=== PATIENT | female | born 1990 | race Asian ===

== ENCOUNTER 2017-07-21 09:27 | Emergency (ER) | payer MEDICAID ==
[2017-07-21 09:44] VITALS: BP 112/61; PULSE 90; RESP 18; TEMP 97.3; O2SAT 94
--- NOTE | 2017-07-21 10:09 | EDPHY ---
H & P Time Seen by Provider: 07/21/17 09:46 HPI/ROS: CHIEF COMPLAINT: Cough, runny nose HISTORY OF PRESENT ILLNESS: The patient is a 17-year-old female who presents to the emergency department with cough and runny nose for the past 2 days. She states that her rhinorrhea is clear. Her cough is nonproductive. She is not short of breath. She has no chest pain. She has had a minimal sore throat that is bilateral. No difficulty swallowing or tolerating secretions. She feels as though she has mild phlegm in her throat. She has had no abdominal pain. No nausea or vomiting. The patient is here with her daughter who also has similar symptoms. No reported fever or chills. No body aches. No neck stiffness or pain. REVIEW OF SYSTEMS: My complete review of systems is negative except as mentioned in the HPI. Past Medical/Surgical History: Negative Past surgical history: Negative Social history: The patient is . Smoking Status: Never smoked Physical Exam: 36.3, 112/61, 90, 18, 94% on room air GENERAL: Well-appearing, in no acute distress, alert. HEENT: Eyes normal to inspection, normal pharynx, no signs of dehydration. Normal NECK: No thyromegaly, no lymphadenopathy, supple. RESPIRATORY: Clear to auscultation bilaterally, no rales, rhonchi or wheezing. Normal CVS: Regular rate and rhythm, no rubs, murmurs, or gallops. ABDOMEN: Soft, nontender, nondistended, no organomegaly. BACK: Normal to inspection, no CVA tenderness. SKIN: Normal color, no rash, warm, dry. No pallor. EXTREMITIES: No pedal edema, no calf tenderness, no Homans sign or cords, no joint swelling. NEURO/PSYCH: Alert and oriented x3, normal mood and affect, normal motor sensory exam. No obvious cranial nerve deficit. Constitutional: Initial Vital Signs Temperature (C) 36.3 C 07/21/17 09:40 Heart Rate 90 07/21/17 09:40 Respiratory Rate 18 07/21/17 09:40 Blood Pressure 112/61 07/21/17 09:40 O2 Sat (%) 94 07/21/17 09:40 O2 Delivery Mode Room Air Allergies/Adverse Reactions: No Known Allergies Allergy (Unverified 07/21/17 09:39) Home Medications: Medication Instructions Recorded Pnv 29-1 Tablet 07/21/17 Medical Decision Making ED Course/Re-evaluation: In the emergency department I discussed possible etiologies with the patient. I answered all her questions. At this time I do not feel she needs further imaging or diagnostics. I explained this in depth. I do not feel she needs antibiotics. I do not feel the patient needs Tamiflu. She has no fever or body aches. She was given warnings prior to leaving. She will return with worsening symptoms. Differential Diagnosis: My differential includes but is not limited to viral illness, bronchitis, pneumonia, influenza, bacteremia, sepsis, pharyngitis Departure - Departure Disposition: Home, Routine, Self-Care Clinical Impression: Viral upper respiratory illness Condition: Good Instructions: Upper Respiratory Infection (ED) Additional Instructions: Return with increasing shortness of breath, persistent cough, fever, repeated vomiting or any other concerns. Referrals: Ivana Guerrero MD [Medical Doctor] - 3-4 days, if not improved
== END 2017-07-21 10:20 | disposition home or self-care (01) ==
LOC: CED 09:27
DX: J39.9 Disease of upper respiratory tract, unspecified (principal)